=== PATIENT | female | born 2000 | race Caucasian/White ===

== ENCOUNTER 2023-06-21 20:37 | Inpatient (IN) | payer BC, MEDICAID, OTHER ==
[~2023-06-21] VITALS: Ht 165.1 cm; Wt 50.1 kg
[2023-06-21 21:33] LABS: HEMATOCRIT 45.6 % (36.0-47.0); HEMOGLOBIN 14.9 g/dl (12.0-15.5); MEAN CORPUSCULAR HEMOGLOBIN 28.7 pg (27.0-33.0); MEAN CORPUSCULAR HGB CONC 32.7 g/dl (32.0-36.5); MEAN CORPUSCULAR VOLUME 87.9 fl (80.0-96.0); PLATELET COUNT, AUTOMATED 324 10^3/uL (150-450); RED BLOOD COUNT 5.19 10^6/uL (4.00-5.40); WHITE BLOOD COUNT 7.9 10^3/uL (4.0-10.0)
[2023-06-21 21:42] LABS: AMPHETAMINES LEVEL URINE NEGATIVE (NEGATIVE); BARBITURATES URINE NEGATIVE (NEGATIVE)
[2023-06-21 21:43] LABS: BENZODIAZEPINES URINE NEGATIVE (NEGATIVE); COCAINE METABOLITE URINE NEGATIVE (NEGATIVE); METHADONE URINE NEGATIVE (NEGATIVE); OPIATES URINE NEGATIVE (NEGATIVE); PHENCYCLIDINE URINE NEGATIVE (NEGATIVE)
[2023-06-21 21:45] LABS: CANNABINOIDS URINE POSITIVE (NEGATIVE)
[2023-06-21 22:02] LABS: ETHYL ALCOHOL (ETHANOL) 0.226 % (0.000-0.010)
[2023-06-21 22:04] LABS: ALBUMIN 4.7 G/DL (3.2-5.2); ALKALINE PHOSPHATASE 83 U/L (46-116); ALT/SGPT 17 U/L (7.0-40); AST/SGOT 16 U/L (<34); BILIRUBIN,DIRECT 0.1 MG/DL (<0.4); BILIRUBIN,TOTAL 0.3 MG/DL (0.3-1.2); BLOOD UREA NITROGEN 7 MG/DL (9-23); CALCIUM LEVEL 9.3 MG/DL (8.5-10.1); CARBON DIOXIDE LEVEL 27 MMOL/L (20-31); CHLORIDE LEVEL 108 MMOL/L (98-107); CREATININE FOR GFR 0.68 MG/DL (0.55-1.30); GLOMERULAR FILTRATION RATE > 60.0 (>60); GLUCOSE, FASTING 110 MG/DL (60-100); POTASSIUM SERUM 3.4 MMOL/L (3.5-5.1); SALICYLATE LEVEL < 3.0 MG/DL (<30); SODIUM LEVEL 144 MMOL/L (136-145); TOTAL PROTEIN 8.1 G/DL (5.7-8.2)
[2023-06-21 22:05] LABS: HCG, SERUM QUALITATIVE NEGATIVE (NEGATIVE)
[2023-06-21 22:06] LABS: THYROID STIMULATING HORMONE 0.701 uIU/ML (0.55-4.78)
[2023-06-22] MEDS ORDERED: LORazepam 2 MG TAB PO PRN ×2 (06:35→16:10)
[2023-06-22] MEDS: THIAMINE 100 MG TAB PO SCH ×3 (06:55→22:13)
[2023-06-22] MEDS ORDERED: MED REC IN PROGRESS XX SCH (08:35)
[2023-06-22] MEDS ORDERED: HOME MED LIST COMPLETE! XX SCH (08:45)
[2023-06-22] MEDS ORDERED: FOLIC ACID 1MG TAB PO SCH (09:00)
[2023-06-22] MEDS ORDERED: MULTIVITAMINS/MINERALS THERAP 1 TAB PO SCH (09:00)
[2023-06-22] MEDS ORDERED: diphenhydrAMINE 25MG CAP PO PRN (16:10)
[2023-06-22] MEDS ORDERED: MAALOX 30 ML SUSP *UDC PO PRN (16:10)
[2023-06-22] MEDS ORDERED: ACETAMINOPHEN TAB 650MG DOSE (2X325MG) PO PRN (16:10)
[2023-06-22] MEDS ORDERED: IBUPROFEN 400MG TAB PO PRN (16:10)
[2023-06-22] MEDS ORDERED: MOM 30ML SUSPENSION UDC PO PRN (16:10)
[2023-06-22 22:37] VITALS: BP 116/70
[2023-06-22] MEDS: traZODone 50 MG TAB PO PRN (22:48)
[2023-06-22 23:45] VITALS: BP 116/70; TEMP 98.2; O2SAT 97
[2023-06-23 06:36] VITALS: BP 121/61; TEMP 98.6
[2023-06-23 06:38] VITALS: BP 121/61
[2023-06-23] MEDS: THIAMINE 100 MG TAB PO SCH ×2 (09:45→20:20)
[2023-06-23] MEDS: FOLIC ACID 1MG TAB PO SCH (09:45)
[2023-06-23] MEDS: MULTIVITAMINS/MINERALS THERAP 1 TAB PO SCH (09:45)
[2023-06-23] MEDS: VENLAFAXINE **XR** 37.5 MG CAPSULE PO SCH (10:33)
[2023-06-23] MEDS: busPIRone 5 MG TAB PO SCH ×2 (10:34→20:20)
[2023-06-23 14:00] VITALS: BP 125/68
[2023-06-23 16:17] VITALS: BP 125/68; TEMP 98.9; O2SAT 95
[2023-06-23] MEDS ORDERED: INFLUENZA QUADRIVALENT PF VACCINE 0.5ML SYRINGE IM.IMMUN ONE (18:00)
[2023-06-23 22:07] VITALS: BP 135/76
[2023-06-24 06:38] VITALS: BP 117/74; TEMP 98.5; O2SAT 99
[2023-06-24 07:07] VITALS: BP 117/74
[2023-06-24] MEDS: THIAMINE 100 MG TAB PO SCH ×2 (09:12→21:06)
[2023-06-24] MEDS: busPIRone 10 MG TAB PO SCH ×2 (09:13→21:06)
[2023-06-24] MEDS: FOLIC ACID 1MG TAB PO SCH (09:13)
[2023-06-24] MEDS: VENLAFAXINE **XR** 37.5 MG CAPSULE PO SCH (09:13)
[2023-06-24] MEDS: MULTIVITAMINS/MINERALS THERAP 1 TAB PO SCH (09:13)
[2023-06-24 17:17] VITALS: BP 128/79; TEMP 98.3
[2023-06-24] MEDS: traZODone 50 MG TAB PO PRN (21:06)
[2023-06-25 06:53] VITALS: BP 129/73; TEMP 98.3; O2SAT 98
[2023-06-25] MEDS: busPIRone 10 MG TAB PO SCH ×2 (08:41→20:33)
[2023-06-25] MEDS: FOLIC ACID 1MG TAB PO SCH (08:41)
[2023-06-25] MEDS: MULTIVITAMINS/MINERALS THERAP 1 TAB PO SCH (08:42)
[2023-06-25] MEDS: THIAMINE 100 MG TAB PO SCH (08:42)
[2023-06-25] MEDS: VENLAFAXINE **XR** 37.5 MG CAPSULE PO SCH (08:42)
[2023-06-25 17:01] VITALS: BP 119/66; TEMP 98.5; O2SAT 97
[2023-06-25] MEDS: traZODone 50 MG TAB PO PRN (20:33)
[2023-06-26 06:34] VITALS: BP 136/71; TEMP 98.2; O2SAT 97
[2023-06-26] MEDS: VENLAFAXINE **XR** 37.5 MG CAPSULE PO SCH (08:24)
[2023-06-26] MEDS: FOLIC ACID 1MG TAB PO SCH (08:24)
[2023-06-26] MEDS: MULTIVITAMINS/MINERALS THERAP 1 TAB PO SCH (08:24)
[2023-06-26] MEDS: busPIRone 10 MG TAB PO SCH ×2 (08:24→20:24)
[2023-06-26 16:25] VITALS: BP 132/79; TEMP 98.4; O2SAT 100
[2023-06-27 06:34] VITALS: BP 133/69; TEMP 98.6; O2SAT 100
[2023-06-27] MEDS: MULTIVITAMINS/MINERALS THERAP 1 TAB PO SCH (08:29)
[2023-06-27] MEDS: VENLAFAXINE **XR** 37.5 MG CAPSULE PO SCH (08:29)
[2023-06-27] MEDS: FOLIC ACID 1MG TAB PO SCH (08:29)
[2023-06-27] MEDS: busPIRone 10 MG TAB PO SCH ×2 (08:29→20:49)
[2023-06-27 15:58] VITALS: BP 126/68; TEMP 98.9; O2SAT 97
[2023-06-27] MEDS: RAMELTEON 8 MG TAB (ROZEREM) PO SCH (20:49)
[2023-06-28 06:44] VITALS: BP 151/74; TEMP 97.6; O2SAT 96
[2023-06-28] MEDS: MULTIVITAMINS/MINERALS THERAP 1 TAB PO SCH (08:19)
[2023-06-28] MEDS: busPIRone 10 MG TAB PO SCH ×2 (08:19→20:57)
[2023-06-28] MEDS: VENLAFAXINE **XR** 37.5 MG CAPSULE PO SCH (08:19)
[2023-06-28] MEDS: FOLIC ACID 1MG TAB PO SCH (08:19)
[2023-06-28 16:10] VITALS: BP 120/66; TEMP 98.4; O2SAT 100
[2023-06-28] MEDS: RAMELTEON 8 MG TAB (ROZEREM) PO SCH (20:57)
[2023-06-29 06:37] VITALS: BP 117/54; TEMP 98.6; O2SAT 100
[2023-06-29] MEDS: FOLIC ACID 1MG TAB PO SCH (08:14)
[2023-06-29] MEDS: MULTIVITAMINS/MINERALS THERAP 1 TAB PO SCH (08:15)
[2023-06-29] MEDS: VENLAFAXINE **XR** 37.5 MG CAPSULE PO SCH (08:15)
[2023-06-29] MEDS: busPIRone 10 MG TAB PO SCH (08:15)
[2023-06-29] MEDS ORDERED: BUSP10TA PO (10:12)
[2023-06-29] MEDS ORDERED: VENL37.598 PO (10:12)
[2023-06-29] MEDS ORDERED: RAME8TAB2 PO (10:12)
== END 2023-06-29 11:26 | disposition home or self-care (01) | DRG 751 ==
LOC: M ED 20:37 → M ED INP 06-22 16:07 → M PSY 06-22 22:26
PROVIDERS: ADMIT Student in an Organized Health Care Education/Training Program; ATTEND Student in an Organized Health Care Education/Training Program
DX: F33.2 Major depressive disorder, recurrent severe without psychotic features (principal); F12.90 Cannabis use, unspecified, uncomplicated; F10.20 Alcohol dependence, uncomplicated; F41.0 Panic disorder [episodic paroxysmal anxiety]; R45.851 Suicidal ideations; F60.89 Other specific personality disorders; E87.6 Hypokalemia; Z20.822 Contact with and (suspected) exposure to COVID-19; Z81.4 Family history of other substance abuse and dependence; Z71.41 Alcohol abuse counseling and surveillance of alcoholic

== ENCOUNTER 2023-07-16 21:51 | Emergency (ER) | payer MEDICAID ==
[~2023-07-16] VITALS: Ht 165.1 cm; Wt 52.5 kg
[~2023-07-16 21:51] MED LIST: BUSP10TA PO; RAME8TAB2 PO; VENL37.598 PO
[2023-07-16 22:33] LABS: HEMATOCRIT 44.7 % (36.0-47.0); HEMOGLOBIN 14.5 g/dl (12.0-15.5); MEAN CORPUSCULAR HEMOGLOBIN 28.9 pg (27.0-33.0); MEAN CORPUSCULAR HGB CONC 32.4 g/dl (32.0-36.5); PLATELET COUNT, AUTOMATED 290 10^3/uL (150-450); RED BLOOD COUNT 5.02 10^6/uL (4.00-5.40); WHITE BLOOD COUNT 8.7 10^3/uL (4.0-10.0)
[2023-07-16 22:57] LABS: ETHYL ALCOHOL (ETHANOL) 0.227 % (0.000-0.010)
[2023-07-16 22:58] LABS: SALICYLATE LEVEL < 3.0 MG/DL (<30)
[2023-07-16 22:59] LABS: ALBUMIN 4.1 G/DL (3.2-5.2); ALKALINE PHOSPHATASE 82 U/L (46-116); ALT/SGPT 24 U/L (7.0-40); AST/SGOT 15 U/L (<34); BILIRUBIN,DIRECT < 0.1 MG/DL (<0.4); BILIRUBIN,TOTAL 0.3 MG/DL (0.3-1.2); BLOOD UREA NITROGEN 8 MG/DL (9-23); CARBON DIOXIDE LEVEL 27 MMOL/L (20-31); CHLORIDE LEVEL 110 MMOL/L (98-107); GLOMERULAR FILTRATION RATE > 60.0 (>60); GLUCOSE, FASTING 107 MG/DL (60-100); POTASSIUM SERUM 3.9 MMOL/L (3.5-5.1); SODIUM LEVEL 144 MMOL/L (136-145); TOTAL PROTEIN 7.5 G/DL (5.7-8.2)
[2023-07-16 23:00] LABS: THYROID STIMULATING HORMONE 1.046 uIU/ML (0.55-4.78)
[2023-07-16 23:01] LABS: HCG, SERUM QUALITATIVE NEGATIVE (NEGATIVE)
[2023-07-16 23:06] LABS: AMPHETAMINES LEVEL URINE NEGATIVE (NEGATIVE)
[2023-07-16 23:07] LABS: BARBITURATES URINE NEGATIVE (NEGATIVE); BENZODIAZEPINES URINE NEGATIVE (NEGATIVE); COCAINE METABOLITE URINE NEGATIVE (NEGATIVE); METHADONE URINE NEGATIVE (NEGATIVE); OPIATES URINE NEGATIVE (NEGATIVE); PHENCYCLIDINE URINE NEGATIVE (NEGATIVE)
[2023-07-16 23:09] LABS: CANNABINOIDS URINE POSITIVE (NEGATIVE)
[2023-07-17] MEDS ORDERED: BUSP10TA PO (01:49)
[2023-07-17] MEDS ORDERED: VENL37.52 PO (01:49)
[2023-07-17] MEDS ORDERED: ROZE8TAB16 PO (01:49)
[2023-07-17] MEDS ORDERED: HOME MED LIST COMPLETE! XX SCH (01:50)
[2023-07-17] MEDS: BOOSTRIX VACCINE (TETANUS/DIPHTH/ACEL. PERTUSSIS) 0.5ML SYR IM.IMMUN ONE (02:33)
[2023-07-17 10:49] VITALS: BP 119/71; TEMP 97.7; O2SAT 100
== END 2023-07-17 11:04 | disposition home or self-care (01) ==
LOC: M ED 21:51
DX: F10.159 Alcohol abuse with alcohol-induced psychotic disorder, unspecified (principal); F12.20 Cannabis dependence, uncomplicated; R45.851 Suicidal ideations; F32.A Depression, unspecified; Z79.899 Other long term (current) drug therapy

== ENCOUNTER 2023-07-17 12:16 | Emergency (ER) | payer MEDICAID ==
[~2023-07-17] VITALS: Ht 165.1 cm; Wt 52.3 kg
[~2023-07-17 12:16] MED LIST changes: +ROZE8TAB16 PO; +VENL37.52 PO
[2023-07-17 13:08] LABS: HEMATOCRIT 44.4 % (36.0-47.0); HEMOGLOBIN 14.1 g/dl (12.0-15.5); MEAN CORPUSCULAR HEMOGLOBIN 28.5 pg (27.0-33.0); MEAN CORPUSCULAR HGB CONC 31.8 g/dl (32.0-36.5); MEAN CORPUSCULAR VOLUME 89.7 fl (80.0-96.0); PLATELET COUNT, AUTOMATED 278 10^3/uL (150-450); RED BLOOD COUNT 4.95 10^6/uL (4.00-5.40); WHITE BLOOD COUNT 10.4 10^3/uL (4.0-10.0)
[2023-07-17 13:37] LABS: AMPHETAMINES LEVEL URINE NEGATIVE (NEGATIVE); BARBITURATES URINE NEGATIVE (NEGATIVE); BENZODIAZEPINES URINE NEGATIVE (NEGATIVE); COCAINE METABOLITE URINE NEGATIVE (NEGATIVE); METHADONE URINE NEGATIVE (NEGATIVE); OPIATES URINE NEGATIVE (NEGATIVE); PHENCYCLIDINE URINE NEGATIVE (NEGATIVE)
[2023-07-17 13:39] LABS: ETHYL ALCOHOL (ETHANOL) < 0.003 % (0.000-0.010)
[2023-07-17 13:40] LABS: SALICYLATE LEVEL < 3.0 MG/DL (<30)
[2023-07-17 13:48] LABS: HCG, SERUM QUALITATIVE NEGATIVE (NEGATIVE)
[2023-07-17 14:01] LABS: ALBUMIN 4.1 G/DL (3.2-5.2); ALKALINE PHOSPHATASE 65 U/L (46-116); ALT/SGPT 20 U/L (7.0-40); AST/SGOT 17 U/L (<34); BILIRUBIN,DIRECT 0.1 MG/DL (<0.4); BILIRUBIN,TOTAL 0.5 MG/DL (0.3-1.2); BLOOD UREA NITROGEN 12 MG/DL (9-23); CALCIUM LEVEL 9.4 MG/DL (8.5-10.1); CANNABINOIDS URINE POSITIVE (NEGATIVE); CARBON DIOXIDE LEVEL 28 MMOL/L (20-31); CHLORIDE LEVEL 103 MMOL/L (98-107); CREATININE FOR GFR 0.61 MG/DL (0.55-1.30); GLOMERULAR FILTRATION RATE > 60.0 (>60); GLUCOSE, FASTING 83 MG/DL (60-100); SODIUM LEVEL 137 MMOL/L (136-145); THYROID STIMULATING HORMONE 1.038 uIU/ML (0.55-4.78); TOTAL PROTEIN 7.2 G/DL (5.7-8.2)
[2023-07-17] MEDS ORDERED: HOME MED LIST COMPLETE! XX SCH (14:35)
[2023-07-18] MEDS: VENLAFAXINE **XR** 37.5 MG CAPSULE PO SCH (08:14)
[2023-07-18] MEDS: busPIRone 10 MG TAB PO SCH (08:14)
[2023-07-20 10:58] VITALS: BP 118/72; TEMP 98; O2SAT 100
== END 2023-07-20 11:00 | disposition home or self-care (01) ==
LOC: M ED 12:16
DX: F32.A Depression, unspecified (principal); R45.851 Suicidal ideations; F41.9 Anxiety disorder, unspecified; F17.200 Nicotine dependence, unspecified, uncomplicated; F19.10 Other psychoactive substance abuse, uncomplicated; F10.10 Alcohol abuse, uncomplicated; Z79.899 Other long term (current) drug therapy

== ENCOUNTER 2023-09-19 19:51 | Inpatient (IN) | payer MEDICAID ==
[~2023-09-19] VITALS: Ht 165.1 cm; Wt 54.5 kg
[2023-09-19] MEDS ORDERED: ERGO500029 PO (20:11)
[2023-09-19] MEDS ORDERED: NORE1TAB73 PO (20:11)
[2023-09-19] MEDS ORDERED: VENL50TA2 PO (20:30)
[2023-09-19 20:50] LABS: HEMATOCRIT 40.6 % (36.0-47.0); HEMOGLOBIN 14.1 g/dl (12.0-15.5); MEAN CORPUSCULAR HEMOGLOBIN 30.5 pg (27.0-33.0); MEAN CORPUSCULAR HGB CONC 34.7 g/dl (32.0-36.5); MEAN CORPUSCULAR VOLUME 87.7 fl (80.0-96.0); PLATELET COUNT, AUTOMATED 351 10^3/uL (150-450); RED BLOOD COUNT 4.63 10^6/uL (4.00-5.40); WHITE BLOOD COUNT 6.3 10^3/uL (4.0-10.0)
[2023-09-19 21:16] LABS: AMPHETAMINES LEVEL URINE NEGATIVE (NEGATIVE); BARBITURATES URINE NEGATIVE (NEGATIVE); BENZODIAZEPINES URINE NEGATIVE (NEGATIVE)
[2023-09-19 21:17] LABS: COCAINE METABOLITE URINE NEGATIVE (NEGATIVE); METHADONE URINE NEGATIVE (NEGATIVE); OPIATES URINE NEGATIVE (NEGATIVE); PHENCYCLIDINE URINE NEGATIVE (NEGATIVE)
[2023-09-19 21:19] LABS: CANNABINOIDS URINE POSITIVE (NEGATIVE); ETHYL ALCOHOL (ETHANOL) 0.108 % (0.000-0.010)
[2023-09-19 21:20] LABS: SALICYLATE LEVEL < 3.0 MG/DL (<30)
[2023-09-19 21:23] LABS: THYROID STIMULATING HORMONE 0.746 uIU/ML (0.55-4.78)
[2023-09-19 21:26] LABS: ALBUMIN 3.8 G/DL (3.2-5.2); ALKALINE PHOSPHATASE 62 U/L (46-116); ALT/SGPT 13 U/L (7.0-40); AST/SGOT 13 U/L (<34); BILIRUBIN,DIRECT 0.2 MG/DL (<0.4); BILIRUBIN,TOTAL 0.5 MG/DL (0.3-1.2); BLOOD UREA NITROGEN < 5 MG/DL (9-23); CALCIUM LEVEL 9.1 MG/DL (8.5-10.1); CARBON DIOXIDE LEVEL 26 MMOL/L (20-31); CHLORIDE LEVEL 109 MMOL/L (98-107); CREATININE FOR GFR 0.63 MG/DL (0.55-1.30); GLOMERULAR FILTRATION RATE > 60.0 (>60); GLUCOSE, FASTING 90 MG/DL (60-100); SODIUM LEVEL 142 MMOL/L (136-145); TOTAL PROTEIN 7.1 G/DL (5.7-8.2)
[2023-09-19 21:27] LABS: HCG, SERUM QUALITATIVE NEGATIVE (NEGATIVE)
[2023-09-19] MEDS: LORazepam 1 MG TAB PO ONE (21:33)
[2023-09-19] MEDS ORDERED: HOME MED LIST COMPLETE! XX SCH (21:35)
[2023-09-20] MEDS: ONDANSETRON 4MG ORAL DISINTEGRATING TAB PO ONE ×2 (01:03→21:14)
[2023-09-20] MEDS: LORazepam 1 MG TAB PO ONE ×2 (06:25→21:13)
[2023-09-20] MEDS: busPIRone 10 MG TAB PO SCH (09:07)
[2023-09-20] MEDS: VENLAFAXINE 25 MG TAB PO SCH (09:08)
[2023-09-21] MEDS: MULTIVITAMINS/MINERALS THERAP 1 TAB PO SCH (09:00)
[2023-09-21] MEDS: FOLIC ACID 1MG TAB PO SCH (09:00)
[2023-09-21] MEDS ORDERED: OLANZapine ORAL DISINTEGRATING TAB 5MG PO PRN (16:20)
[2023-09-21] MEDS ORDERED: LORazepam 2 MG TAB PO PRN (16:20)
[2023-09-21] MEDS ORDERED: MAALOX 30 ML SUSP *UDC PO PRN (16:20)
[2023-09-21] MEDS ORDERED: MOM 30ML SUSPENSION UDC PO PRN (16:20)
[2023-09-21] MEDS ORDERED: traZODone 50 MG TAB PO PRN (16:20)
[2023-09-21] MEDS ORDERED: diphenhydrAMINE 25MG CAP PO PRN (16:20)
[2023-09-21] MEDS ORDERED: IBUPROFEN 400MG TAB PO PRN (16:20)
[2023-09-21] MEDS ORDERED: ACETAMINOPHEN TAB 650MG DOSE (2X325MG) PO PRN (16:20)
[2023-09-21] MEDS ORDERED: NICOTINE 21MG/24HR 1 EA TRANSDERMAL TD PRN (16:20)
[2023-09-21] MEDS: busPIRone 10 MG TAB PO SCH (21:04)
[2023-09-21] MEDS: THIAMINE 100 MG TAB PO SCH (21:04)
[2023-09-21 22:00] VITALS: BP 116/76
[2023-09-21 22:49] VITALS: BP 116/76; TEMP 98.7; O2SAT 98
[2023-09-22 06:16] VITALS: BP 109/70; TEMP 97.7; O2SAT 99
[2023-09-22] MEDS: VENLAFAXINE 25 MG TAB PO SCH (09:09)
== END 2023-09-22 11:45 | disposition home or self-care (01) | DRG 751 ==
LOC: M ED 19:51 → M ED INP 09-21 16:18 → M PSY 09-21 20:31
PROVIDERS: ADMIT Student in an Organized Health Care Education/Training Program; ATTEND Student in an Organized Health Care Education/Training Program
DX: F33.0 Major depressive disorder, recurrent, mild (principal); F41.9 Anxiety disorder, unspecified; F12.90 Cannabis use, unspecified, uncomplicated; F10.10 Alcohol abuse, uncomplicated; F60.3 Borderline personality disorder; R45.851 Suicidal ideations; R56.9 Unspecified convulsions